=== PATIENT | male | born 1960 | race Caucasian/White ===

== ENCOUNTER 2017-11-25 20:03 | Emergency (ER) | payer OTHER, MEDICAID ==
[2017-11-25] MEDS: DIPHENHYDRAMINE 25 MG CAP PO (20:38)
== END 2017-11-25 20:55 | disposition home or self-care (01) ==
LOC: FTE 20:03
DX: T63.441A Toxic effect of venom of bees, accidental (unintentional), initial encounter (principal)
CPT/HCPCS: 99283; Z7502

== ENCOUNTER 2017-11-26 11:02 | Emergency (ER) | payer OTHER ==
[2017-11-26] MEDS: DIPHENHYDRAMINE 25 MG CAP PO (11:35)
== END 2017-11-26 12:05 | disposition home or self-care (01) ==
LOC: FTE 11:02
DX: T63.441A Toxic effect of venom of bees, accidental (unintentional), initial encounter (principal); F17.210 Nicotine dependence, cigarettes, uncomplicated
CPT/HCPCS: 99283; Z7502